=== PATIENT | male | born 2005 | race Caucasian/White ===

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

== ENCOUNTER 2023-07-04 00:17 | Emergency (ER) | payer OTHER, SELFPAY ==
[2023-07-04 00:25] VITALS: BP 147/55; PULSE 87; O2SAT 100
--- NOTE | 2023-07-04 00:25 | ED.EAR ---
HPI - Ear Problem General Stated complaint: ear pain Time Seen by Provider: 07/04/23 00:21 Source: patient Mode of arrival: EMS Limitations: no limitations History of Present Illness HPI Narrative: Patient comes to the emergency room via ambulance complaining of right-sided ear pain. Patient states it started couple of days ago. Patient has been using [id number]-ikoetwu drop medications without any relief. Patient took ibuprofen which helped some with the pain. Patient denies any discharge. Denies any difficulty hearing. Patient denies fever or chills. Related Data Previous Rx's Medication Instructions Recorded amoxicillin 500 mg-potassium 1 tab PO BID #20 tabs 07/04/23 clavulanate 125 mg tablet (Augmentin) Allergies Allergy/AdvReac Type Severity Reaction Status Date / Time cat dander [CAT] Allergy Unknown UNKNOWN Unverified 03/23/20 17:23 dog dander [DOG] Allergy Unknown UNKNOWN Unverified 03/23/20 17:23 fish derived Allergy Unknown UNKNOWN Unverified 03/23/20 17:23 mold Allergy Unknown UNKNOWN Unverified 03/23/20 17:23 Review of Systems Review of Systems: Constitutional : No Weight loss, No Fever, No Chills, No Night Sweats, No Fatigue, No Malaise ENT/Mouth : No Hearing loss, complaining of right sided Ear Pain, No Nasal Congestion, No Sinus Pain, No Hoarseness, No sore throat, No Rhinorrhea, No Swallowing Difficulty Eyes: No Eye Pain, No Swelling, No Redness, No Foreign Body, No Discharge, No Vision Changes Cardiovascular : No Chest Pain, No SOB, No Dyspnea on Exertion, No Orthopnea, No Edema, No Palpitations Respiratory : No Cough, No Sputum, No Wheezing, No Smoke Exposure, No Dyspnea Gastrointestinal : No Nausea, No Vomiting, No Diarrhea, No Constipation, No abdominal Pain, No Hematochezia, No Melena Genitourinary : no irregular bleeding, No Dysuria, No Urinary Frequency, No Hematuria, No Urinary Incontinence, No Urgency, No Flank Pain, No Urinary Flow Changes, No Hesitancy Musculoskeletal : No joint pain, No Myalgias, No Joint Swelling Skin : No Skin Lesions, No rash Neuro : No Weakness, No Numbness, No Paresthesias, No Loss of Consciousness, No Dizziness, No Headache Psych : No Anxiety/Panic, No Depression, No SI/HI/AH/VH, No Social Issues, Heme/Lymph: No Bruising, No Bleeding,No Lymphadenopathy Endocrine : No Polyuria, No Polydipsia, No Temperature Intolerance Physical Exam Const: Other: Appearance: Alert. Oriented X3. No acute distress. Eyes: Pupils equal, round and reactive to light. ENT: Pharynx normal. Right ear otitis media, tympanic membrane intact, left ear slightly erythematous, no mastoid bone tenderness Neck: Normal inspection. Neck supple. No lymph nodes noted. No crepitus CVS: Normal heart rate and rhythm. Pulses normal. Normal S1 and S2 Respiratory: No respiratory distress. Breath sounds normal. No Wheezing. No rales Abdomen: Soft and nontender. No rigidity. No distention. Skin: Skin warm and dry. Normal skin color. Normal skin turgor. Extremities: No lower extremity edema. No Lacerations. No Rash Neuro: Oriented X 3. No motor deficit. No sensory deficit. Moving all extremities. No slurred speech. CN 2 through 12 grossly intact Psych: calm, cooperative, normal affect Medical Decision Making Medical Decision Making MDM Narrative: -I discussed the physical exam with the patient, patient has otitis media in the right ear, likely beginning on the left ear -patient given a Augmentin in the ED, declined IM medication, patient took ibuprofen a few hours ago and states he feels better Differential Diagnosis Differential Diagnoses: The differential diagnosis associated with the presentation includes (Otalgia, otitis media, foreign body) Discharge Plan Discharge Clinical Impression: Otitis media Patient Disposition: Home, Self-Care Instructions: Ear Infection (ED) Additional Instructions: Please follow-up with your primary care physician tomorrow. If you have any worsening or new symptoms, please return to the emergency room or call 911 Prescriptions: New amoxicillin-pot clavulanate [Augmentin] 500-125 mg tablet 1 tab PO BID Qty: 20 0RF
[2023-07-04 00:27] VITALS: BP 132/93; PULSE 66; RESP 17; TEMP 36.8; O2SAT 100
[2023-07-04] MEDS: Amoxicillin/Potassium Clav 875 MG TABLET PO (01:01)
== END 2023-07-04 02:20 | disposition home or self-care (01) ==
LOC: HO.ED 00:58
PROVIDERS: Emergency Provider Emergency Medicine
DX: H66.91 Otitis media, unspecified, right ear (principal); H92.01 Otalgia, right ear
CPT/HCPCS: 99282; 99283